=== PATIENT | male | born 1940 | race Caucasian/White ===

== ENCOUNTER 2018-03-15 23:55 | Emergency (ER) | payer MEDICARE, OTHER ==
[~2018-03-15] VITALS: Ht 182.9 cm; Wt 87.7 kg
[~2018-03-15 23:55] MED LIST: CIPROFLOXACN500 MG PO; CORTISPORIN OTI10 M2 AD; CORTISPORIN OTI10 M2 AU; OMNICEF300 MG PO
[2018-03-16 00:18] LABS: HEMATOCRIT 42.1 % (39.0-50.0); HEMOGLOBIN 14.1 g/dl (14.0-18.0); IMMATURE GRANULOCYTES 0.4 % (0.0-5.0); MEAN CELL VOLUME 88.1 fL CALC (80.0-100.0); MEAN CORPUSCULAR HGB 29.5 pG CALC (26.0-32.0); MEAN CORPUSCULAR HGB CONC 33.5 g/L CALC (32.0-36.0); NEUT# 3.14 thou/uL (1.82-7.42); RED BLOOD COUNT 4.78 mill/uL (4.70-6.10); RED CELL DISTRI WIDTH 13.9 % (11.5-15.5)
[2018-03-16 00:31] LABS: GFR 58 ML/MIN (>=60 (CALC)); GFR FOR AFR.AMER. > 60 ML/MIN (>=60 (CALC))
[2018-03-16] MEDS ORDERED: CARVEDILOL3.125 MG PO (00:32)
[2018-03-16 00:39] LABS: ACT PARTIAL THROMBO TIME 24.9 SECONDS (20.0-32.5); PROTHROMBIN TIME 10.2 SECONDS (9.0-12.5)
[2018-03-16 00:45] LABS: ALBUMIN 4.3 g/dL (3.2-5.0); ALKALINE PHOSPHATASE 77 u/l (38-126); ANION GAP 13 (6-22 (CALC)); BILIRUBIN, TOTAL 0.3 mg/dL (0.0-1.4); BUN 16 mg/dL (8-23); BUN/CREATININE RATIO 14 (12-20 (CALC)); CARBON DIOXIDE 30 mmol/l (22-30); CHLORIDE 106 mmol/l (95-108); CREATININE 1.1 mg/dL (0.7-1.3); GFR > 60 ML/MIN (>=60 (CALC)); GFR FOR AFR.AMER. > 60 ML/MIN (>=60 (CALC)); SGOT/AST 23 u/l (19-48); SODIUM 144 mmol/l (137-146); TOTAL PROTEIN 7.2 g/dL (6.3-8.2)
[2018-03-16 00:57] LABS: MYOGLOBIN 33 ng/mL (0 - 121)
[2018-03-16 01:32] VITALS: BP 188/98
== END 2018-03-16 02:00 | disposition short-term general hospital (02) ==
LOC: ED 23:55
PROVIDERS: Emergency Medicine
DX: R29.818 Other symptoms and signs involving the nervous system (principal); I16.1 Hypertensive emergency; R47.9 Unspecified speech disturbances; R20.0 Anesthesia of skin
CPT/HCPCS: Q9967